=== PATIENT | male | born 1965 | race Caucasian/White ===

== ENCOUNTER 2016-12-27 07:56 | Inpatient (IN) | payer OTHER ==
[~2016-12-27] VITALS: Ht 180.3 cm; Wt 96.3 kg
[~2016-12-27 07:56] MED LIST: ONDA4TAB46 PO
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
[2016-12-27 08:29] LABS: URINE APPEARANCE CLEAR (CLEAR); URINE BILIRUBIN NEG (NEG); URINE COLOR YELLOW; URINE NITRITE NEG (NEG); URINE PH 5.5 (4.5-7.5); URINE SPECIFIC GRAVITY 1.015 (1.000-1.030); UROBILINOGEN NEG (NEG); ZZUR CULT IF INDIC CLEAN CATCH NO
[2016-12-27 08:31] LABS: MANUAL MICROSCOPIC REQUIRED? NO; REVIEW REQ? NO
[2016-12-27 08:33] LABS: HEMATOCRIT 52.3 % (42-52); MEAN CELL VOLUME 97.2 fL (80-100); MEAN CORPUSCULAR HEMOGLOBIN 32.3 pg (25-34); MEAN CORPUSCULAR HGB CONC 33.3 g/dl (32-36); MEAN PLATELET VOLUME 10.1 fL (7.4-10.4); PLATELET COUNT 250 K/uL (130-400); RED BLOOD COUNT 5.38 M/uL (4.7-6.1); WHITE BLOOD COUNT 11.39 K/uL (4.8-10.8)
[2016-12-27 08:53] LABS: BUN/CREATININE RATIO 6.4 (10-20); CALCIUM 9.2 mg/dl (8.5-10.1); CREATININE 0.8 mg/dl (0.60-1.40); POTASSIUM 3.7 mmol/L (3.5-5.1)
[2016-12-27 08:56] LABS: BENZODIAZEPINE, URINE NEG (NEG); COCAINE,URINE NEG (NEG); PHENCYCLIDINE, URINE NEG (NEG)
[2016-12-27 09:03] LABS: ALB/GLOB RATIO 1.1 (0.9-2); THYROID STIMULATING HORMONE 3.27 uIu/ml (0.300-4.500)
[2016-12-27 09:17] LABS: ACETAMINOPHEN < 2 ug/ml (10-30)
[2016-12-27 17:09] VITALS: O2SAT 98
[2016-12-27] MEDS ORDERED: MAGNESIUM HYDROXIDE SUSP 30 ML UDC PO PRN (17:45)
[2016-12-27] MEDS ORDERED: ALUMINUM/MAGNESIUM SUSP 30 ML UDC PO PRN (17:45)
[2016-12-27] MEDS ORDERED: hydrOXYzine HCL 25 MG TAB PO PRN ×2 (17:45)
[2016-12-27] MEDS ORDERED: BISMUTH SUBSALICYLATE PER ML OMNICELL CHARGE PO PRN (17:45)
[2016-12-27] MEDS ORDERED: LORAZEPAM 1 MG TAB PO PRN (17:45)
[2016-12-27] MEDS ORDERED: SODIUM CHLORIDE 0.65% NA SOLN 45 ML (OCEAN) PRN (17:45)
[2016-12-27] MEDS ORDERED: ACETAMINOPHEN 325 MG TAB PO PRN (17:45)
[2016-12-27] MEDS ORDERED: NICOTINE POLACRILEX 2 MG GUM MT PRN (17:45)
[2016-12-27 18:34] VITALS: BP 125/72; PULSE 62; TEMP 37.1; Ht 180.3 cm; Wt 96.3 kg
[2016-12-27 20:07] VITALS: BP 125/72; PULSE 62; TEMP 37.1
[2016-12-27] MEDS ORDERED: GABAPENTIN 600 MG TAB PO STA (22:17)
[2016-12-27] MEDS: NICOTINE 21 MG/24 HR TDSY TD SCH (22:59)
[2016-12-28] MEDS: GABAPENTIN 600MG Q6H DOSE PO SCH ×2 (03:48→12:15)
[2016-12-28 06:55] VITALS: BP_SYST 135; BP_SYST 146; BP_DIAS 79; BP_DIAS 83; PULSE 60; PULSE 67; TEMP 36.6
[2016-12-28] MEDS: NICOTINE 21 MG/24 HR TDSY TD SCH (07:47)
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
[2016-12-28] MEDS ORDERED: CITALOPRAM 20 MG TAB PO STA (12:00)
[2016-12-28 12:53] VITALS: BP 149/88; PULSE 62; TEMP 36.8
[2016-12-28 16:50] VITALS: BP 151/86; PULSE 54; TEMP 36.5
[2016-12-28] MEDS: GABAPENTIN 600MG Q8H DOSE PO SCH (17:18)
[2016-12-29] MEDS: GABAPENTIN 600MG Q8H DOSE PO SCH ×2 (02:10→09:57)
[2016-12-29] MEDS: NICOTINE 21 MG/24 HR TDSY TD SCH (08:55)
[2016-12-29] MEDS: CITALOPRAM 20 MG TAB PO SCH (08:56)
[2016-12-29 09:02] VITALS: BP_SYST 115; BP_SYST 129; BP_DIAS 80; BP_DIAS 81; PULSE 63; PULSE 78; TEMP 36.6
[2016-12-29 12:16] VITALS: BP 156/84; PULSE 52; TEMP 36.3
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
[2016-12-29] MEDS: GABAPENTIN 600MG Q12H DOSE PO SCH (21:46)
[2016-12-30 06:54] VITALS: BP_SYST 135; BP_SYST 143; BP_DIAS 80; BP_DIAS 87; PULSE 60; PULSE 83; TEMP 36.7
[2016-12-30] MEDS: NICOTINE 21 MG/24 HR TDSY TD SCH (08:34)
[2016-12-30] MEDS: CITALOPRAM 20 MG TAB PO SCH (08:34)
[2016-12-30] MEDS ORDERED: NICO21DI4 TD (10:10)
[2016-12-30] MEDS ORDERED: CLX20 PO (10:10)
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
[2016-12-30] MEDS: GABAPENTIN 600MG Q12H DOSE PO SCH (10:32)
[2016-12-31] MEDS ORDERED: GABAPENTIN 600MG Q24H DOSE PO SCH (10:00)
== END 2016-12-30 11:22 | DRG 881 ==
LOC: C.EDB 07:58 → C.MHU 17:09
PROVIDERS: ADMIT Psychiatry & Neurology Psychiatry; ATTEND Psychiatry & Neurology Psychiatry
DX: F32.9 Major depressive disorder, single episode, unspecified (principal); F10.10 Alcohol abuse, uncomplicated; F12.10 Cannabis abuse, uncomplicated